=== PATIENT | female | born 1980 | race Caucasian/White ===

== ENCOUNTER 2022-05-21 08:31 | Inpatient (IN) ==
[2022-05-21] MEDS ORDERED: IOPAMIDOL 100 ML BOTTLE IV ONE (08:32)
[2022-05-21] MEDS ORDERED: methylPREDNISolone SOD SUCC 125 MG/2 ML VIAL IV ONE (08:48)
[2022-05-21] MEDS ORDERED: IPRATROPIUM/ALBUTEROL 3 ML AMPUL.NEB NEB ONE (08:48)
--- NOTE | 2022-05-21 08:50 | Emergency Department Note ---
SOB HPI General Chief Complaint: Shortness of Breath/Dyspnea Stated Complaint: SOB Time Seen by Provider: 05/21/22 08:48 Source: patient Mode of arrival: ambulatory Limitations: no limitations History of Present Illness HPI Narrative: Narrative: Patient presents ED after being sent over from a minor care for complaints of worsening shortness of breath x1 week. Spoke to the minor care provider who states that patient was satting less than 75% on room air at their facility and they felt that patient needed higher level care so they sent her over to the ED. Patient states that 1 week ago she had a pain in her back almost a popping feeling and since then she has been having progressive shortness of breath. She states that he is hard to get a deep breath in and she is not being refreshed by her breath. She tried to go to work today but could not. She reports that she has had an ongoing cough due to a tickle in the back of her throat. She denies fever, chills, sputum production, wheezing, cardiac chest pain, heart palpitation, hemoptysis, melena, hematochezia, known sick contacts, chest trauma, abdominal pain, melena or hematochezia. Patient states that she is a current everyday smoker. She denies any other alleviating or aggravating factors. Related Data Home Medications Medication Instructions Recorded Confirmed quetiapine 200 mg tablet 200 mg PO HS 07/19/15 05/21/22 alprazolam 1 mg tablet 1 mg PO DAILY PRN Anxiety 12/31/16 05/21/22 lisinopril 10 mg tablet 10 mg PO DAILY 12/31/16 05/21/22 hydrocodone 5 mg-acetaminophen 325 1 tab PO QHS PRN 03/17/19 05/21/22 mg tablet doxazosin 2 mg tablet 2 mg PO QDAY 05/21/22 05/21/22 furosemide 40 mg tablet 40 mg PO QDAY 05/21/22 05/21/22 potassium chloride 20 mEq 20 meq PO QDAY 05/21/22 05/21/22 tablet,extended release(part/cryst) Previous Rx's Medication Instructions Recorded albuterol sulfate 90 mcg/actuation 2 puff inhalation .q4-6h PRN 11/02/21 aerosol inhaler (ProAir HFA) cough, shortness of breath, wheezing #8.5 grams Allergies Allergy/AdvReac Type Severity Reaction Status Date / Time sumatriptan [From Imitrex] AdvReac Intermediate Hives Verified 05/21/22 08:15 Review of Systems ROS ROS Narrative: Narrative: All systems ED: reviewed and negative except as stated. PFSH Narrative Patient History Narrative: Narrative: Medical/Surgical/Family History All Active Problems (Updated 05/21/22 @ 11:17 by Rickey La) Acute respiratory failure with hypoxia (Acute) CHF (congestive heart failure) (Acute) Hypercapnia (Acute) Pneumonia (Acute) Pleural effusion (Acute) Bronchitis (Acute) SOB (shortness of breath) (Acute) Mastitis chronic (Acute) Nausea (Acute) Medical History Mastitis chronic Social History Smoking Status: Current every day smoker Exam Narrative Narrative: Narrative: General Limitations: no limitations General appearance: Present obese Respiratory Respiratory: Present respiratory distress, wheezes, accessory muscle use and decreased breath sounds Cardiovascular Cardiovascular: Present normal rhythm and tachycardia Adbominal Abdominal: Present soft; Absent tenderness Extremities Extremities: Present normal inspection and normal capillary refill Neurological Neurological: Present oriented X3 and normal gait Psychiatric Psychiatric: Present normal affect and normal mood Skin Skin: Present warm (WNL) and intact Course Course Course Narrative: Patient was evaluated for complaints of shortness of breath. When patient arrived she was satting 58% on room air. She was placed on 2 L via nasal cannula and her oxygen saturation, above 90%. She was tachycardic when she arrived and EKG showed sinus rhythm. Chest x-ray obtained with image reviewed myself which showed a right pleural effusion concerning for pneumonia. Blood cultures were obtained and patient was given IV Rocephin and azithromycin. She was also given some IV Lasix for her pleural effusion. Patient lactic acid was within normal limits but her CO2 level was greater than 70. Patient placed on BiPAP. Labs showing normal white cell count. Patient does not meet sepsis criteria. D-dimer was elevated so CTA of the chest was obtained and was negative for PE. Patient's BNP level was greater than 2800. Since patient has no history of CHF diagnosis this may be new onset CHF. Case discussed with hospitalist who has agreed to admit pt. Reevaluation(s) Reevaluation #1: Patient remains hemodynamically stable. No new complaints at this time. Time: 09:50 Vital Signs Vital signs: Vital Signs Pulse Rate 95 H 05/21/22 08:39 Respiratory Rate 30 H 05/21/22 08:39 Blood Pressure 149/92 05/21/22 08:39 Pulse Oximetry (%) 54 L 05/21/22 08:39 Oxygen Delivery Method 05/21/22 08:39 Pulse Rate 91 H 05/21/22 12:08 Respiratory Rate 22 05/21/22 11:09 Blood Pressure 163/120 05/21/22 12:02 Pulse Oximetry (%) 91 05/21/22 12:08 Oxygen Delivery Method 05/21/22 11:05 Oxygen Flow Rate (L/min) 30 05/21/22 09:48 MDM MDM Narrative Medical decision making narrative: Narrative: Differential Diagnosis Differential Diagnosis: PE, pneumothorax, asthma exacerbation, COPD exacerbation Medical Records Medical records reviewed: Yes I reviewed the patient's medical records. Lab Data Lab results reviewed: Yes I reviewed the patient's lab results. Result diagrams: 05/21/22 08:59 Labs: Lab Results 05/21/22 05/21/22 05/21/22 Range/Units 08:54 08:54 08:55 WBC (4.5-11.0) K/mcL RBC (3.59-5.38) M/mcL Hgb (11.2-15.7) g/dL Hct (34.1-44.9) % POC Hct 51.0 H (36-48) MCV (80.0-100.0) fL MCH (26.0-34.0) pg MCHC (31.0-36.0) g/dL RDW (11.5-14.5) % Plt Count (140-440) K/mcL MPV (8.8-12.5) fL Immature Gran % (Auto) (0.0-0.5) % Neut % (Auto) (38.0-78.0) % Lymph % (Auto) (15.5-49.0) % [place] % (Auto) (1.0-12.0) % Eos % (Auto) (0.0-7.0) % Baso % (Auto) (0.0-2.0) % Lymph # (Auto) (1.50-4.80) K/mcL [place] # (Auto) (0.10-0.90) K/mcL Eos # (Auto) (0.00-0.70) K/mcL Baso # (Auto) (0.00-0.30) K/mcL Immature Gran # (0.00-0.05) K/mcl Absolute Neutrophils (1.80-8.00) K/mcL D-Dimer (0.27-0.50) ug/mL POC VBG pH 7.34 (7.32-7.42) POC VBG pCO2 at Temp 70.8 H* (41-51) POC VBG pO2 47 H (25-40) POC VBG HCO3 38.0 H (24-28) POC VBG Total CO2 40.0 H (25-29) POC Venous O2 Sat 78.0 H (40-70) POC VBG Base Excess 12.0 H* (-2-2) VBG Lactic Acid 0.8 (0.5-2) POC Sodium 138 (133-145) POC Potassium 4.1 (3.3-5.1) POC Chloride 95 L (96-108) POC Total CO2 34.0 H (22-30) POC BUN 6 (6-20) POC Creatinine 0.5 L (0.6-1.2) POC Glucose 103 (70-105) POC WB Ioniz Calcium 1.17 (1.16-1.32) NT-Pro-B Natriuret Pep 2806.0 H (<125.0) pg/mL HCG, Qual Negative POC Troponin I (0.00-0.08) 05/21/22 05/21/22 05/21/22 Range/Units 08:59 08:59 09:00 WBC 9.3 (4.5-11.0) K/mcL RBC 5.79 H (3.59-5.38) M/mcL Hgb 14.9 (11.2-15.7) g/dL Hct 49.8 H (34.1-44.9) % POC Hct (36-48) MCV 86.0 (80.0-100.0) fL MCH 25.7 L (26.0-34.0) pg MCHC 29.9 L (31.0-36.0) g/dL RDW 18.4 H (11.5-14.5) % Plt Count 264 (140-440) K/mcL MPV 9.6 (8.8-12.5) fL Immature Gran % (Auto) 0.3 (0.0-0.5) % Neut % (Auto) 71.0 (38.0-78.0) % Lymph % (Auto) 13.4 L (15.5-49.0) % [place] % (Auto) 5.5 (1.0-12.0) % Eos % (Auto) 9.4 H (0.0-7.0) % Baso % (Auto) 0.4 (0.0-2.0) % Lymph # (Auto) 1.25 L (1.50-4.80) K/mcL [place] # (Auto) 0.51 (0.10-0.90) K/mcL Eos # (Auto) 0.88 H (0.00-0.70) K/mcL Baso # (Auto) 0.04 (0.00-0.30) K/mcL Immature Gran # 0.03 (0.00-0.05) K/mcl Absolute Neutrophils 6.61 (1.80-8.00) K/mcL D-Dimer 6.57 H (0.27-0.50) ug/mL POC VBG pH (7.32-7.42) POC VBG pCO2 at Temp (41-51) POC VBG pO2 (25-40) POC VBG HCO3 (24-28) POC VBG Total CO2 (25-29) POC Venous O2 Sat (40-70) POC VBG Base Excess (-2-2) VBG Lactic Acid (0.5-2) POC Sodium (133-145) POC Potassium (3.3-5.1) POC Chloride (96-108) POC Total CO2 (22-30) POC BUN (6-20) POC Creatinine (0.6-1.2) POC Glucose (70-105) POC WB Ioniz Calcium (1.16-1.32) NT-Pro-B Natriuret Pep (<125.0) pg/mL HCG, Qual POC Troponin I < 0.02 (0.00-0.08) ED POC Tests ED POC Tests: RAKAN - Influenza A Negative RAKAN - Influenza B Negative RAKAN - SARS Antigen Negative HCG POC Results Negative Radiology Data Radiology results reviewed: Yes I reviewed the patient's radiology results. Radiology results narrative: Chest x-ray obtained with image reviewed myself, I agree with radiologist interpretation CT of the chest obtained with image reviewed myself, I agree with radiologist interpretation EKG Data EKG #1: EKG attestation: Yes I reviewed and interpreted this EKG. EKG shows normal: sinus rhythm Rate: tachycardia (92) Rhythm: NSR [place]/QRS: LAHB/LAFB Heart block present: None ST segment elevation in: None ST segment depression in: None Interpretation: no acute changes Core Measures AMI Core Measures Followed: Yes Discharge Plan Patient/Caregiver Discharge Instructions Pt seen by [facility] SORTER/PA only: No Clinical Impression: Acute respiratory failure with hypoxia, CHF (congestive heart failure), Hypercapnia, Pneumonia, Pleural effusion Patient Disposition: Xfer As Outpt/Obs ([facility]) Condition: Fair Follow up with: No,PCP [Primary Care Provider] - Prescriptions: No Action albuterol sulfate [ProAir HFA] 90 mcg/actuation HFA aerosol inhaler 2 puff inhalation .q4-6h PRN (Reason: cough, shortness of breath, wheezing) Qty: 8.5 0RF Rx Instructions: administer with spacer hydrocodone-acetaminophen 5-325 mg tablet 1 tab PO QHS PRN furosemide 40 mg tablet 40 mg PO QDAY potassium chloride 20 mEq tablet,ER particles/crystals 20 meq PO QDAY doxazosin 2 mg tablet 2 mg PO QDAY quetiapine 200 MG tablet 200 mg PO HS alprazolam 1 MG tablet 1 mg PO DAILY PRN (Reason: Anxiety) lisinopril 10 MG tablet 10 mg PO DAILY
[2022-05-21 08:57] LABS: POC Calcium, Ionized 1.17 (1.16-1.32); POC Creatinine 0.5 (0.6-1.2); POC Potassium 4.1 (3.3-5.1)
--- NOTE | 2022-05-21 09:42 | XRay Report ---
INDICATION: sob TECHNIQUE: AP portable upright chest x-ray COMPARISON: Previous chest x-ray dated 11/02/2021 FINDINGS: Heart size is unchanged and probably within normal limits for AP positioning. Pulmonary vascularity is prominent. There is peribronchial thickening which may be bronchitis in this patient with a smoking history. Interstitial edema is possible. There is right basilar consolidation and a moderate right pleural effusion. Pulmonary edema or pneumonia are possible. Clinical correlation and follow-up radiographs are recommended. IMPRESSION: 1. Right basilar consolidation and right pleural effusion. Findings may be due to congestive heart failure and/or pneumonia 2. Peribronchial thickening may be due to bronchitis or interstitial edema. Interpreted and Authenticated by: Vinnie Hanley 05/21/22
[2022-05-21] MEDS ORDERED: AZITHROMYCIN 500 MG in DEXTROSE 5% IN WATER 250 ML IV ONE (09:45)
[2022-05-21] MEDS ORDERED: cefTRIAXone 2 GM in DEXTROSE 5% IN WATER 50 ML IV ONE (09:45)
[2022-05-21] MEDS ORDERED: FUROSEMIDE 100 MG/10 ML VIAL IV ONE (09:46)
[2022-05-21 10:30] LABS: Basophils # (Auto) 0.04 K/mcL (0.00-0.30); Basophils % (Auto) 0.4 % (0.0-2.0); Eosinophils # (Auto) 0.88 K/mcL (0.00-0.70); Eosinophils % (Auto) 9.4 % (0.0-7.0); Hematocrit 49.8 % (34.1-44.9); Hemoglobin 14.9 g/dL (11.2-15.7); Lymphocytes # (Auto) 1.25 K/mcL (1.50-4.80); Lymphocytes % (Auto) 13.4 % (15.5-49.0); Mean Corpuscular HGB Conc 29.9 g/dL (31.0-36.0); Mean Platelet Volume 9.6 fL (8.8-12.5); Monocytes # (Auto) 0.51 K/mcL (0.10-0.90); Monocytes % (Auto) 5.5 % (1.0-12.0); Platelet Count 264 K/mcL (140-440); RBC 5.79 M/mcL (3.59-5.38); Red Cell Distribution Width 18.4 % (11.5-14.5); WBC 9.3 K/mcL (4.5-11.0)
[2022-05-21 10:51] LABS: HCG,Serum Negative
--- NOTE | 2022-05-21 11:02 | Cat Scan Report ---
INDICATION: sob, elevatd ddimer COMPARISON: Chest x-rays dated 05/21/2022, 11/02/2021 TECHNIQUE: Axial images obtained through the chest. 90ml Isovue 370 injected intravenously, and scanning was performed during pulmonary arterial phase. Sagittally and coronally reformatted images were obtained. MIP reformatted images. FINDINGS: Lungs:Partial right upper lobe and right lower lobe collapse with air bronchograms. Findings are consistent with compressive atelectasis in the right lower lobe. Left lung is negative Mediastinum, vascular:Main pulmonary artery, right pulmonary artery, left pulmonary artery are negative. No intraluminal filling defects. No lobar, segmental, or subsegmental emboli. Main pulmonary artery measures 36 mm in cross-sectional diameter. This may indicate pulmonary arterial hypertension. Thoracic aorta is negative. No aneurysmal dilatation No pathologic mediastinal or hilar adenopathy Heart:No cardiomegaly. No pericardial effusion. Pleura:Moderate to large right pleural effusion. No pleural-based mass. Axilla, supraclavicular regions, chest wall:No pathologic axillary or supraclavicular adenopathy. Musculoskeletal:Negative thoracic spine. No compression fracture. No lytic lesion. No rib or sternal lesions Upper Abdomen:Spleen is enlarged. Spleen measures 16.5 cm in maximum AP dimension. Craniocaudal dimension is not assessed. IMPRESSION: 1. Negative pulmonary CTA. No pulmonary embolism 2. Right upper lobe and right lower lobe atelectasis 3. Moderate to large right pleural effusion 4. Enlarged main pulmonary artery. Pulmonary arterial hypertension is possible 5. Splenomegaly The exam was performed using radiation dose optimization techniques including, but not limited to, automated exposure control, adjustment of the mA and/or kV according to patient size and use of iterative reconstruction technique. Interpreted and Authenticated by: Vinnie Hanley 05/21/22
--- NOTE | 2022-05-21 12:53 | Internal Med History&Physical ---
HPI History of Present Illness Patient information: Note initiated : 05/21/22 at 12:51 pm Service Date, if different from initiated Date: [] Patient: Gauri Winchester a 42 y/o F admitted on for Shortness of breath. Chief Complaint: [shortness of breath] Chief complaint: shortness of breath History of present illness: Ms. Winchester is a 42 year old F history of CHF, sleep apnea on CPAP at night, presenting with 1 week history of acute nausea, gradually worsening shortness of breath. Patient was being diagnosed with CHF about 5 years ago. About a week ago, she have acute onset shortness of breath unable to take a deep breath because of some right-sided flank pain. She is also complaining of intermittent cough but she denies any wheezing but her family stated that she does have wheezing. She denies any chest pain or palpitations. She denies any fever chills or diaphoresis. She has a history of exertional dyspnea of 20 feet. She has orthopnea sleeping on 2 pillows. She is complaining of bilateral leg swellings. She denies any unintentional weight gain. She was placed on BiPAP in the ED. Labs significant for lack of leukocytosis with WBC 9.3. Lactic acid 0.8. D-dimer 6.57. BNP 2806. CTA of the chest negative for pulmonary embolism. It shows right upper lobe and right lower lobe atelectasis. It shows moderate to large right pleural effusions. It also suggesting the presence of pulmonary arterial hypertension's. Constitutional Constitutional: Absent chills, excessive sweating, fatigue, fever(s) or weakness EENT Eyes: Absent blurry vision, change in vision, loss of vision or other visual disturbances Ears: Absent decreased hearing or tinnitus Nose, mouth and throat: Absent abnormal hearing, dry mouth, headache(s), nasal congestion or sore throat Cardiovascular Cardiovascular: Absent chest pain, chest pain at rest, edema, irregular heart rhythm or palpatations Respiratory Respiratory: Present cough, dyspnea and dyspnea on exertion; Absent wheezing Gastrointestinal Gastrointestinal: Absent abdominal pain, constipation, diarrhea, nausea or vomiting Musculoskeletal Musculoskeletal: Absent back pain, deformity, limited range of motion, muscle cramps, muscle weakness or numbness Integumentary Integumentary: Absent lesions, rash or wounds Neurological Neurological: Absent focal weakness, headache(s) or numbness Psychiatric Psychiatric: Absent anxiety, depression or hallucinations PFSH PFSH All Active Problems (Updated 05/21/22 @ 12:59 by Adair Butler MD) Pulmonary arterial hypertension (Acute) Morbid obesity with BMI of 50.0-59.9, adult (Acute) THADDEUS on CPAP (Acute) CHF exacerbation (Acute) Acute on chronic respiratory failure with hypoxia and hypercapnia (Acute) Acute respiratory failure with hypoxia (Acute) CHF (congestive heart failure) (Acute) Hypercapnia (Acute) Pneumonia (Acute) Pleural effusion (Acute) Bronchitis (Acute) SOB (shortness of breath) (Acute) Mastitis chronic (Acute) Nausea (Acute) Medical History Mastitis chronic Social History smoking status: Current every day smoker MEDS/ALLERGIES Home Medications and Allergies Home Medications Medication Instructions Recorded Confirmed Type quetiapine 200 mg tablet 200 mg PO HS 07/19/15 05/21/22 History alprazolam 1 mg tablet 1 mg PO DAILY PRN Anxiety 12/31/16 05/21/22 History lisinopril 10 mg tablet 10 mg PO DAILY 12/31/16 05/21/22 History hydrocodone 5 mg-acetaminophen 325 1 tab PO QHS PRN 03/17/19 05/21/22 History mg tablet albuterol sulfate 90 mcg/actuation 2 puff inhalation .q4-6h PRN 11/02/21 05/21/22 Rx aerosol inhaler (ProAir HFA) cough, shortness of breath, wheezing #8.5 grams doxazosin 2 mg tablet 2 mg PO QDAY 05/21/22 05/21/22 History furosemide 40 mg tablet 40 mg PO QDAY 05/21/22 05/21/22 History potassium chloride 20 mEq 20 meq PO QDAY 05/21/22 05/21/22 History tablet,extended release(part/cryst) Allergies Allergy/AdvReac Type Severity Reaction Status Date / Time sumatriptan [From Imitrex] AdvReac Intermediate Hives Verified 05/21/22 08:15 EXAM Constitutional Vitals: Pulse Resp BP Pulse Ox O2 Del Method O2 Flow Rate 91 H 22 163/120 91 30 05/21/22 12:08 05/21/22 11:09 05/21/22 12:02 05/21/22 12:08 05/21/22 11:05 05/21/22 09:48 General appearance: cooperative, mild distress, morbidly obese and no acute distress Head Head exam: Present atraumatic and normocephalic Eye Eye exam: Present EOMI and PERRL ENT ENT exam: Present mucous membranes moist, normal exam and normal external ear exam Additional comments: BiPAP in place Neck Neck exam: Present normal inspection; Absent lymphadenopathy, tenderness or thyromegaly Respiratory Respiratory exam: Present decreased breath sounds; Absent accessory muscle use, respiratory distress or wheezes Cardiovascular Cardiovascular exam: Present normal rate and rhythm; Absent JVD GI/Abdominal GI/Abdominal exam: Present normal bowel sounds and soft; Absent organomegaly or tenderness Extremities Exam Extremities exam: Present full ROM, normal capillary refill, normal inspection and pedal edema; Absent tenderness Neurological Exam Neurological exam: Present alert, CN II-XII intact and oriented X3; Absent motor sensory deficit Psychiatric Psychiatric exam: Present normal affect and normal mood; Absent anxious or depressed Skin Skin exam: Present dry and intact DATA Data Completed and Pending Labs: Labs from last 24 hours 05/21/22 05/21/22 05/21/22 09:00 08:59 08:59 WBC 9.3 RBC 5.79 H Hgb 14.9 Hct 49.8 H POC Hct MCV 86.0 MCH 25.7 L MCHC 29.9 L RDW 18.4 H Plt Count 264 MPV 9.6 Immature Gran % (Auto) 0.3 Neut % (Auto) 71.0 Lymph % (Auto) 13.4 L [place] % (Auto) 5.5 Eos % (Auto) 9.4 H Baso % (Auto) 0.4 Lymph # (Auto) 1.25 L [place] # (Auto) 0.51 Eos # (Auto) 0.88 H Baso # (Auto) 0.04 Immature Gran # 0.03 Absolute Neutrophils 6.61 D-Dimer 6.57 H POC VBG pH POC VBG pCO2 at Temp POC VBG pO2 POC VBG HCO3 POC VBG Total CO2 POC Venous O2 Sat POC VBG Base Excess VBG Lactic Acid POC Sodium POC Potassium POC Chloride POC Total CO2 POC BUN POC Creatinine POC Glucose POC WB Ioniz Calcium NT-Pro-B Natriuret Pep HCG, Qual POC Troponin I < 0.02 05/21/22 05/21/22 05/21/22 08:55 08:54 08:54 WBC RBC Hgb Hct POC Hct 51.0 H MCV MCH MCHC RDW Plt Count MPV Immature Gran % (Auto) Neut % (Auto) Lymph % (Auto) [place] % (Auto) Eos % (Auto) Baso % (Auto) Lymph # (Auto) [place] # (Auto) Eos # (Auto) Baso # (Auto) Immature Gran # Absolute Neutrophils D-Dimer POC VBG pH 7.34 POC VBG pCO2 at Temp 70.8 H* POC VBG pO2 47 H POC VBG HCO3 38.0 H POC VBG Total CO2 40.0 H POC Venous O2 Sat 78.0 H POC VBG Base Excess 12.0 H* VBG Lactic Acid 0.8 POC Sodium 138 POC Potassium 4.1 POC Chloride 95 L POC Total CO2 34.0 H POC BUN 6 POC Creatinine 0.5 L POC Glucose 103 POC WB Ioniz Calcium 1.17 NT-Pro-B Natriuret Pep 2806.0 H HCG, Qual Negative POC Troponin I A/P Assessment and plan (1) Acute on chronic respiratory failure with hypoxia and hypercapnia: Status: Acute (2) CHF exacerbation: Status: Acute (3) THADDEUS on CPAP: Status: Acute (4) Morbid obesity with BMI of 50.0-59.9, adult: Status: Acute (5) Pulmonary arterial hypertension: Status: Acute (6) Pleural effusion: Status: Acute Narrative A/P Narrative: Assessment and Plans: 1. Acute on chronic respiratory failure with hypercapnia and hypoxia secondary to CHF exacerbation with associated right sided pleural effusion: Inpatient PCU BiPAP with the following settings: IPAP/EPAP 17/8, RR 8, FiO2 35% Strict intake and output Daily weigh 2L/day fluid restriction Lasix IV Lisinopril No beta nora while in exacerbation 2D echocardiogram Physical therapy 2. THADDEUS on CPAP: BiPAP for now, see above Once out of CHF exacerbation, will switch back to CPAP while sleeping 3. Morbid obesity: Hospice Chaplain patient on life style modifications in order to lose weight 4. Possible pulmonary arterial hypertension: Consider Ciagra if no clinical improvement with diuretics GI ppx: not currently indicated DVT ppx: Lovenox Code status: Full Prognosis: extremely guarded Disposition: inpatient PCU; PT Time Spent With Patient Time: Total time spent is greater than 50% in coordination of care (as documented) at patient's floor/unit and/or counseling patient: Total time spent with greater than 50% in coordination of care (as documented) at patient's floor/unit and/or counseling patient:: 50 - 70 minutes
[2022-05-21] MEDS ORDERED: LACTULOSE 20 GM/30 ML ORAL.SOL PO PRN (13:45)
[2022-05-21] MEDS ORDERED: ONDANSETRON 4 MG/2 ML VIAL IV PRN (13:45)
[2022-05-21] MEDS ORDERED: IPRATROPIUM/ALBUTEROL 3 ML AMPUL.NEB NEB PRN (13:45)
[2022-05-21] MEDS ORDERED: SENNOSIDES 1 TABLET PO PRN (13:45)
[2022-05-21] MEDS ORDERED: ACETAMINOPHEN 325 MG TABLET PO PRN (13:45)
[2022-05-21] MEDS: 0.9 % SODIUM CHLORIDE 10 ML SYRINGE IV SCH ×2 (13:47→21:00)
--- NOTE | 2022-05-21 14:10 | EKG ---
[facility] Test Date: 2022-05-21 Pat Name: Gauri Winchester Department: ED Room: Gender: Female [employer] Apprentice: AW : 1980 Requested By: Sunny Harrison Order Number: [id number] Reading MD: Adria Mcknight Measurements Intervals [place] Rate: 92 P: 27 AK: 160 QRS: -41 QRSD: 98 T: 31 QT: 373 QTc: 462 Interpretive Statements Sinus rhythm Left anterior fascicular block Abnormal R-wave progression, late transition Baseline wander in lead(s) V2,V3,V6 Electronically Signed On 05-21-2022 14:10:13 PDT by Adria Mcknight /store/M0/[id number]/[id number]
[2022-05-21] MEDS ORDERED: ALBUTEROL SULFATE 200 PUFF INHALER INH PRN (15:32)
[2022-05-21] MEDS: FUROSEMIDE 40 MG/4 ML VIAL IV SCH (15:56)
[2022-05-21] MEDS: HYDROcodone/APAP 5/325MG TABLET PO PRN (18:51)
[2022-05-21] MEDS: ALPRAZolam 0.5 MG TABLET PO PRN (18:51)
[2022-05-21] MEDS ORDERED: hydrALAZINE 20 MG/ML VIAL IV PRN (19:15)
[2022-05-21] MEDS: QUEtiapine 100 MG TABLET PO SCH (20:59)
[2022-05-21] MEDS: DOCUSATE SODIUM 100 MG CAPSULE PO SCH (21:00)
[2022-05-22] MEDS: 0.9 % SODIUM CHLORIDE 10 ML SYRINGE IV SCH ×3 (05:13→22:38)
[2022-05-22 06:14] LABS: Basophils # (Auto) 0.02 K/mcL (0.00-0.30); Basophils % (Auto) 0.2 % (0.0-2.0); Eosinophils # (Auto) 0.02 K/mcL (0.00-0.70); Eosinophils % (Auto) 0.2 % (0.0-7.0); Hemoglobin 15.1 g/dL (11.2-15.7); Lymphocytes # (Auto) 0.99 K/mcL (1.50-4.80); Lymphocytes % (Auto) 10.3 % (15.5-49.0); Mean Cell Volume 88.5 fL (80.0-100.0); Mean Corpuscular HGB Conc 29.6 g/dL (31.0-36.0); Mean Platelet Volume 9.5 fL (8.8-12.5); Monocytes # (Auto) 0.74 K/mcL (0.10-0.90); Monocytes % (Auto) 7.7 % (1.0-12.0); Neutrophils % (Auto) 80.8 % (38.0-78.0); Platelet Count 259 K/mcL (140-440); RBC 5.76 M/mcL (3.59-5.38); Red Cell Distribution Width 18.3 % (11.5-14.5); WBC 9.6 K/mcL (4.5-11.0)
[2022-05-22 07:13] LABS: Phosphorous 5.1 mg/dL (2.5-4.5)
[2022-05-22 07:24] LABS: ALT/SGPT 14 U/L (<40); AST/SGOT 20 U/L (<32); Albumin 3.7 gm/dL (3.2-5.2); Albumin/Globulin Ratio 1.2 (1.0-2.3); Alkaline Phosphatase 87 U/L (39-117); Bilirubin,Total 0.3 mg/dL (0.1-1.0); Blood Urea Nitrogen 11 mg/dL (6-20); Calcium 9.2 mg/dL (8.6-10.4); Carbon Dioxide 35 mmol/L (22-30); Chloride 95 mmol/L (96-108); Globulin 3.3 gm/dL (2.2-3.7); Glomerular Filtration Rate 112; Glucose 84 mg/dL (70-105)
[2022-05-22] MEDS: FUROSEMIDE 40 MG/4 ML VIAL IV SCH (08:13)
[2022-05-22] MEDS: ENOXAPARIN 40 MG/0.4 ML SYRINGE SQ SCH (08:14)
[2022-05-22] MEDS: POTASSIUM CHLORIDE 20 MEQ TABLET PO SCH (08:14)
[2022-05-22] MEDS: DOCUSATE SODIUM 100 MG CAPSULE PO SCH ×2 (08:30→21:09)
[2022-05-22] MEDS ORDERED: LISINOPRIL 2.5 MG TABLET PO SCH (09:00)
[2022-05-22] MEDS ORDERED: DOXAZOSIN 1 MG TABLET PO SCH (09:00)
[2022-05-22] MEDS: LISINOPRIL 20 MG TABLET PO SCH (09:08)
--- NOTE | 2022-05-22 09:10 | Internal Med Progress Note ---
SUBJECTIVE Subjective Patient information: Note initiated : 05/22/22 at 9:04 am Service Date, if different from initiated Date: [] Patient: Gauri Winchester a 42 y/o F admitted on 05/21/22 for Shortness of breath. Chief Complaint: [] Interval history: Ms. Winchester is a 42 year old F history of CHF, sleep apnea on CPAP at night, presenting with 1 week history of acute nausea, gradually worsening shortness of breath. Patient was being diagnosed with CHF about 5 years ago. About a week ago, she have acute onset shortness of breath unable to take a deep breath because of some right-sided flank pain. She is also complaining of intermittent cough but she denies any wheezing but her family stated that she does have wheezing. She denies any chest pain or palpitations. She denies any fever chills or diaphoresis. She has a history of exertional dyspnea of 20 feet. She has orthopnea sleeping on 2 pillows. She is complaining of bilateral leg swellings. She denies any unintentional weight gain. She was placed on BiPAP in the ED. Labs significant for lack of leukocytosis with WBC 9.3. Lactic acid 0.8. D-dimer 6.57. BNP 2806. CTA of the chest negative for pulmonary embolism. It shows right upper lobe and right lower lobe atelectasis. It shows moderate to large right pleural effusions. It also suggesting the presence of pulmonary arterial hypertension. 05/22: Was on BiPAP overnight, currently at 5L/min oxygen via nasal cannula. c/o improving degree of shortness of breath. Denies cough or respiratory wheezing. Denies fever, chills, or sweating. Denies chest pain or palpitation. Improving degree of general body weakness. d/c Doxazosin. Continue Lasix IV and Lisinopril. Continue to wean down/off BiPAP as tolerated. Pending echocardiogram. Pending physical therapy. Constitutional Vitals: Vital Signs Temp Pulse Resp BP Pulse Ox O2 Del Method O2 Flow Rate 36.6 C 89 19 111/70 97 6 05/22/22 08:00 05/22/22 08:00 05/22/22 08:00 05/22/22 08:00 05/22/22 08:00 05/22/22 08:00 05/21/22 18:05 Period Temp Pulse Resp BP Sys/Winter Pulse Ox O2 Del Method O2 Flow Rate Last 24 Hr 36.4 C-37.0 C 82-108 15-28 97-184/55-120 74-100 BiPAP-Nasal Cannula 6-30 Intake and Output 05/21/22 05/22/22 05/22/22 21:59 05:59 13:59 Intake Total 240 120 Output Total 1300 900 Balance -1060 -780 Weight 139.071 kg Intake & Output: Intake & Output 05/21/22 05/22/22 05/22/22 21:59 05:59 13:59 Intake Total 240 120 Output Total 1300 900 Balance -1060 -780 Weight 139.071 kg Intake: Oral 240 120 Output: Void Amount 1300 900 Other: Meal Dinner Percent of Meal Consumed 100% Feeding Ability Independent Urine Appearance Clear Clear Urine Color Bright Yellow Bright Yellow Urine Odor Normal General appearance: cooperative, morbidly obese and no acute distress Head Head exam: Present atraumatic and normal inspection Eye Eye exam: Present normal appearance ENT ENT exam: Present mucous membranes moist, normal exam and normal external ear exam Additional comments: Nasal cannula in place Neck Neck exam: Present normal inspection Respiratory Respiratory exam: Present decreased breath sounds Cardiovascular Cardiovascular exam: Present normal rate and rhythm GI/Abdominal GI/Abdominal exam: Present normal bowel sounds Extremities Exam Extremities exam: Present pedal edema Back Exam Back exam: Present normal inspection Neurological Exam Neurological exam: Present alert and oriented X3 Skin Skin exam: Present intact and warm OBJ DATA Labs CBC & Chem 7: 05/22/22 05:04 05/22/22 05:04 Labs: Abnormal Lab Results 05/22/22 05/22/22 05/21/22 05:04 05:04 08:59 RBC 5.76 H Hct 51.0 H POC Hct MCH MCHC 29.6 L RDW 18.3 H Immature Gran % (Auto) 0.8 H Neut % (Auto) 80.8 H Lymph % (Auto) 10.3 L Eos % (Auto) Lymph # (Auto) 0.99 L Eos # (Auto) Immature Gran # 0.08 H D-Dimer 6.57 H POC VBG pCO2 at Temp POC VBG pO2 POC VBG HCO3 POC VBG Total CO2 POC Venous O2 Sat POC VBG Base Excess POC Chloride Chloride 95 L Carbon Dioxide 35 H POC Total CO2 Anion Gap 7.0 L POC Creatinine Phosphorus 5.1 H NT-Pro-B Natriuret Pep 05/21/22 05/21/22 05/21/22 08:59 08:55 08:54 RBC 5.79 H Hct 49.8 H POC Hct MCH 25.7 L MCHC 29.9 L RDW 18.4 H Immature Gran % (Auto) Neut % (Auto) Lymph % (Auto) 13.4 L Eos % (Auto) 9.4 H Lymph # (Auto) 1.25 L Eos # (Auto) 0.88 H Immature Gran # D-Dimer POC VBG pCO2 at Temp 70.8 H* POC VBG pO2 47 H POC VBG HCO3 38.0 H POC VBG Total CO2 40.0 H POC Venous O2 Sat 78.0 H POC VBG Base Excess 12.0 H* POC Chloride Chloride Carbon Dioxide POC Total CO2 Anion Gap POC Creatinine Phosphorus NT-Pro-B Natriuret Pep 2806.0 H 05/21/22 08:54 RBC Hct POC Hct 51.0 H MCH MCHC RDW Immature Gran % (Auto) Neut % (Auto) Lymph % (Auto) Eos % (Auto) Lymph # (Auto) Eos # (Auto) Immature Gran # D-Dimer POC VBG pCO2 at Temp POC VBG pO2 POC VBG HCO3 POC VBG Total CO2 POC Venous O2 Sat POC VBG Base Excess POC Chloride 95 L Chloride Carbon Dioxide POC Total CO2 34.0 H Anion Gap POC Creatinine 0.5 L Phosphorus NT-Pro-B Natriuret Pep Meds: Medications Acetaminophen (Acetaminophen 325 Mg Tablet) 650 mg PO Q6HP PRN; Protocol PRN Reason: Per Pain Protocol/Fever > 101 Hydrocodone Bitart/Acetaminophen (Hydrocodone/Apap 5/325mg Tablet) 1 tab PO BIDP PRN; Protocol PRN Reason: Pain Last Admin: 05/21/22 18:51 Dose: 1 tab Albuterol Sulfate (Albuterol Sulfate 200 Puff Inhaler) 2 puff INH Q4-6HP PRN PRN Reason: cough, shortness of breath, wheezing Albuterol/Ipratropium (Ipratropium/Albuterol 3 Ml Ampul.Neb) 3 ml NEB Q4HRT PRN PRN Reason: Wheezing Alprazolam (Alprazolam 0.5 Mg Tablet) 1 mg PO DAILYP PRN PRN Reason: Anxiety Last Admin: 05/21/22 18:51 Dose: 1 mg Docusate Sodium (Docusate Sodium 100 Mg Capsule) 100 mg PO BID [facility] Last Admin: 05/21/22 21:00 Dose: Not Given Enoxaparin Sodium (Enoxaparin 40 Mg/0.4 Ml Syringe) 40 mg SQ DAILY [facility] Last Admin: 05/22/22 08:14 Dose: 40 mg Furosemide (Furosemide 40 Mg/4 Ml Vial) 40 mg IV BIDD [facility] Last Admin: 05/22/22 08:13 Dose: 40 mg Hydralazine HCl (Hydralazine 20 Mg/Ml Vial) 10 mg IV Q4-6HP PRN PRN Reason: Hypertension Lactulose (Lactulose 20 Gm/30 Ml Oral.Kika) 10 gm PO DAILYP PRN PRN Reason: Constipation Lisinopril (Lisinopril 20 Mg Tablet) 40 mg PO QDAY [facility] Ondansetron HCl (Ondansetron 4 Mg/2 Ml Vial) 4 mg IV Q4HP PRN; Protocol PRN Reason: Nausea And Vomiting Potassium Chloride (Potassium Chloride 20 Meq Tablet) 20 meq PO QDAY [facility] Last Admin: 05/22/22 08:14 Dose: 20 meq Quetiapine Fumarate (Quetiapine 100 Mg Tablet) 150 - 300 mg PO QHS [facility] Last Admin: 05/21/22 20:59 Dose: 150 mg Senna (Sennosides 1 Tablet) 2 tab PO HSP PRN PRN Reason: Constipation Sodium Chloride (0.9 % Sodium Chloride 10 Ml Syringe) 10 ml IV Q8 [facility] Last Admin: 05/22/22 05:13 Dose: 10 ml A/P Assessment and plan (1) Acute on chronic respiratory failure with hypoxia and hypercapnia: Status: Acute (2) CHF exacerbation: Status: Acute (3) THADDEUS on CPAP: Status: Acute (4) Morbid obesity with BMI of 50.0-59.9, adult: Status: Acute (5) Pulmonary arterial hypertension: Status: Acute (6) Pleural effusion: Status: Acute Narrative A/P Narrative: Assessment and Plans: 1. Acute on chronic respiratory failure with hypercapnia and hypoxia secondary to CHF exacerbation with associated right sided pleural effusion: Inpatient PCU BiPAP with the following settings: IPAP/EPAP 17/8, RR 8, FiO2 50%, continue to wean down/off BiPAP as tolerated Strict intake and output Daily weigh 2L/day fluid restriction Lasix IV Lisinopril No beta nora while in exacerbation 2D echocardiogram Physical therapy 2. THADDEUS on CPAP: BiPAP for now, see above Once out of CHF exacerbation, will switch back to CPAP while sleeping 3. Morbid obesity: Bass Singer patient on life style modifications in order to lose weight 4. Possible pulmonary arterial hypertension: Consider Viagra if no clinical improvement with diuretics GI ppx: not currently indicated DVT ppx: Lovenox Code status: Full Prognosis: Guarded Disposition: inpatient PCU; PT Time Spent With Patient Time: Total time spent is greater than 50% in coordination of care (as documented) at patient's floor/unit and/or counseling patient: Total time spent with greater than 50% in coordination of care (as documented) at patient's floor/unit and/or counseling patient:: 35 - 50 minutes QUALITY VTE Deep Vein Thrombosis/Pulmonary Embolism Present on Admission: No
[2022-05-22] MEDS: HYDROcodone/APAP 5/325MG TABLET PO PRN ×2 (09:14→19:31)
[2022-05-22] MEDS: FUROSEMIDE 40 MG TABLET PO SCH (16:34)
[2022-05-22] MEDS: ALPRAZolam 0.5 MG TABLET PO PRN (19:31)
[2022-05-22] MEDS: QUEtiapine 100 MG TABLET PO SCH (23:06)
[2022-05-23] MEDS: 0.9 % SODIUM CHLORIDE 10 ML SYRINGE IV SCH (05:21)
[2022-05-23 06:24] LABS: Basophils # (Auto) 0.04 K/mcL (0.00-0.30); Basophils % (Auto) 0.5 % (0.0-2.0); Eosinophils # (Auto) 0.23 K/mcL (0.00-0.70); Eosinophils % (Auto) 2.8 % (0.0-7.0); Hematocrit 50.7 % (34.1-44.9); Hemoglobin 14.6 g/dL (11.2-15.7); Lymphocytes # (Auto) 1.05 K/mcL (1.50-4.80); Lymphocytes % (Auto) 12.7 % (15.5-49.0); Mean Cell Volume 89.3 fL (80.0-100.0); Mean Corpuscular HGB Conc 28.8 g/dL (31.0-36.0); Mean Platelet Volume 9.8 fL (8.8-12.5); Monocytes # (Auto) 0.54 K/mcL (0.10-0.90); Monocytes % (Auto) 6.5 % (1.0-12.0); Platelet Count 219 K/mcL (140-440); RBC 5.68 M/mcL (3.59-5.38); Red Cell Distribution Width 17.7 % (11.5-14.5); WBC 8.3 K/mcL (4.5-11.0)
[2022-05-23 06:59] LABS: Phosphorous 3.7 mg/dL (2.5-4.5)
[2022-05-23 07:05] LABS: ALT/SGPT 15 U/L (<40); AST/SGOT 16 U/L (<32); Albumin 3.7 gm/dL (3.2-5.2); Albumin/Globulin Ratio 1.2 (1.0-2.3); Alkaline Phosphatase 86 U/L (39-117); Bilirubin,Total 0.3 mg/dL (0.1-1.0); Blood Urea Nitrogen 12 mg/dL (6-20); Carbon Dioxide 42 mmol/L (22-30); Chloride 95 mmol/L (96-108); Globulin 3.2 gm/dL (2.2-3.7); Glomerular Filtration Rate 118; Glucose 93 mg/dL (70-105)
[2022-05-23] MEDS: POTASSIUM CHLORIDE 20 MEQ TABLET PO SCH (08:47)
[2022-05-23] MEDS: LISINOPRIL 20 MG TABLET PO SCH (08:47)
[2022-05-23] MEDS: ENOXAPARIN 40 MG/0.4 ML SYRINGE SQ SCH (08:47)
[2022-05-23] MEDS: DOCUSATE SODIUM 100 MG CAPSULE PO SCH (08:47)
[2022-05-23] MEDS: FUROSEMIDE 40 MG TABLET PO SCH (08:48)
--- NOTE | 2022-05-23 10:30 | Discharge Summary ---
Discharge Provider Provider IMPORTANT FOLLOW-UP INFORMATION FOR PCP: Patient information: Note initiated : 05/23/22 at 10:25 am Service Date, if different from initiated Date: [] Patient: Gauri Winchester 42 y/o F admitted on 05/21/22 for Shortness of breath. Chief Complaint: [] Date of admission: 05/21/22 13:31 Discharge date: 05/23/22 Primary care physician: PCP No Attending physician on admission: Adair Butler Consults: 05/21/22 Consult to Physician [CONS] Stat Comment: Consulting Provider: Adair Butler Reason For Exam: Physician to Consult 05/21/22 11:14 Consult to Physician [CONS] Stat Comment: Consulting Provider: Javan Sandoval Reason For Exam: Physician to Consult Attending physician on discharge: Adair Butler COURSE Hospital Course Hospital course: Ms. Winchester is a 42 year old F history of CHF, sleep apnea on CPAP at night, presenting with 1 week history of acute nausea, gradually worsening shortness of breath. Patient was being diagnosed with CHF about 5 years ago. About a week ago, she have acute onset shortness of breath unable to take a deep breath because of some right-sided flank pain. She is also complaining of intermittent cough but she denies any wheezing but her family stated that she does have wheezing. She denies any chest pain or palpitations. She denies any fever chills or diaphoresis. She has a history of exertional dyspnea of 20 feet. She has orthopnea sleeping on 2 pillows. She is complaining of bilateral leg swellings. She denies any unintentional weight gain. She was placed on BiPAP in the ED. Labs significant for lack of leukocytosis with WBC 9.3. Lactic acid 0.8. D-dimer 6.57. BNP 2806. CTA of the chest negative for pulmonary embolism. It shows right upper lobe and right lower lobe atelectasis. It shows moderate to large right pleural effusions. It also suggesting the presence of pulmonary arterial hypertension. 05/22: Was on BiPAP overnight, currently at 5L/min oxygen via nasal cannula. c/o improving degree of shortness of breath. Denies cough or respiratory wheezing. Denies fever, chills, or sweating. Denies chest pain or palpitation. Improving degree of general body weakness. d/c Doxazosin. Continue Lasix IV and Lisinopril. Continue to wean down/off BiPAP as tolerated. Pending echocardiogram. Pending physical therapy. 05/23: Reached clinical stability. Discharged to home with home health physical therapy. 1 week PCP follow up appointment made for her. Home oxygen arranged. She will need outpatient sleep study in order to qualify for CPAP at night while sleeping. All questions were answered prior to patient being physically discharged. Discharge diagnosis: CHF exacerbation; obesity hypoventilation; obstructive sleep apnea. Time Spent with Patient Time attestation: Total time spent providing and/or coordinating discharge services: Time spent: Greater than 30 minutes EXAM Constitutional Vitals: Temp Pulse Resp BP Pulse Ox O2 Del Method O2 Flow Rate 37.9 C H 91 H 24 H 150/92 93 3 05/23/22 08:14 05/23/22 10:05 05/23/22 10:05 05/23/22 10:05 05/23/22 10:05 05/23/22 10:05 05/23/22 10:05 General appearance: cooperative, morbidly obese and no acute distress Head Head exam: Present atraumatic and normocephalic Eye Eye exam: Present EOMI and PERRL ENT ENT exam: Present mucous membranes moist, normal exam and normal external ear exam Additional comments: Nasal cannula in place Neck Neck exam: Present normal inspection; Absent lymphadenopathy, tenderness or thyromegaly Respiratory Respiratory exam: Present decreased breath sounds; Absent accessory muscle use, respiratory distress or wheezes Cardiovascular Cardiovascular exam: Present normal rate and rhythm; Absent JVD GI/Abdominal GI/Abdominal exam: Present normal bowel sounds and soft; Absent organomegaly or tenderness Extremities Exam Extremities exam: Present full ROM, normal capillary refill and normal inspection; Absent tenderness Neurological Exam Neurological exam: Present alert, CN II-XII intact and oriented X3; Absent motor sensory deficit Psychiatric Psychiatric exam: Present normal affect and normal mood; Absent anxious or depressed Skin Skin exam: Present dry and intact Discharge Data Data Completed and Pending Labs on day of discharge: Labs from last 24 hours 05/23/22 05/23/22 05:20 05:20 WBC 8.3 RBC 5.68 H Hgb 14.6 Hct 50.7 H MCV 89.3 MCH 25.7 L MCHC 28.8 L RDW 17.7 H Plt Count 219 MPV 9.8 Immature Gran % (Auto) 0.5 Neut % (Auto) 77.0 Lymph % (Auto) 12.7 L [place] % (Auto) 6.5 Eos % (Auto) 2.8 Baso % (Auto) 0.5 Lymph # (Auto) 1.05 L [place] # (Auto) 0.54 Eos # (Auto) 0.23 Baso # (Auto) 0.04 Immature Gran # 0.04 Absolute Neutrophils 6.35 Sodium 139 Potassium 4.9 Chloride 95 L Carbon Dioxide 42 H* Anion Gap 2.0 L BUN 12 Creatinine 0.5 L GFR Calculation 118 Glucose 93 Calcium 9.0 Phosphorus 3.7 Magnesium 2.2 Total Bilirubin 0.3 AST 16 ALT 15 Alkaline Phosphatase 86 Total Protein 6.9 Albumin 3.7 Globulin 3.2 Albumin/Globulin Ratio 1.2 Preliminary micro results at discharge 05/21/22 09:15 Blood Culture - Preliminary Blood 05/21/22 09:07 Blood Culture - Preliminary Blood Discharge Plan Patient/Caregiver Discharge Instructions Activity: increase activity as tolerated Diet: Regular Diet Instructions: Heart Failure (GEN), Using Oxygen at Home (GEN) Prescriptions: New carvedilol [Coreg] 3.125 mg tablet 3.125 mg PO BID Qty: 60 0RF Rx Instructions: must administer with a meal/food Continued potassium chloride 20 mEq tablet,ER particles/crystals 20 meq PO QDAY doxazosin 2 mg tablet 2 mg PO QDAY alprazolam 1 MG tablet 1 mg PO DAILYP PRN (Reason: Anxiety) quetiapine 300 mg Tablet 150 - 300 mg PO QHS hydrocodone-acetaminophen 5-325 mg tablet 1 tab PO BIDP PRN (Reason: Pain) lisinopril 40 mg tablet 40 mg PO QDAY albuterol sulfate [ProAir HFA] 90 mcg/actuation HFA aerosol inhaler 2 puff inhalation Q4-6HP PRN (Reason: cough, shortness of breath, wheezing) Rx Instructions: administer with spacer Changed furosemide 40 mg tablet 40 mg PO BID 30 Days Qty: 60 0RF Follow Up Plan Follow up with: Roxanne Collier NP-C [Physician] - 05/30/22 4:30 pm Patient Disposition: Home Health Service Prognosis: Fair Rehab Potential: Good I certify that the patient requires SNF services: No Overall status at discharge: patient is progressing back to baseline Discharge Orders: Discharge Order (Routine); Ordered 05/23/22 Ordered By: Adair METCALF VTE Deep Vein Thrombosis/Pulmonary Embolism Present on Admission: No
== END 2022-05-23 11:45 | disposition home health service (06) | DRG 291 ==
LOC: ED 08:31 → ICU 13:31
PROVIDERS: ADMIT Internal Medicine; ATTEND Internal Medicine

== ENCOUNTER 2024-12-03 14:45 | Inpatient (IN) ==
[2024-12-03] MEDS: methylPREDNISolone SOD SUCC 125 MG/2 ML VIAL IV ONE (15:10)
[2024-12-03] MEDS: MAGNESIUM SULFATE 2 GM/50 ML BAG IV ONE (15:10)
[2024-12-03] MEDS: IPRATROPIUM/ALBUTEROL 3 ML AMPUL.NEB NEB ONE ×3 (15:29→18:30)
[2024-12-03 15:39] LABS: Basophils # (Auto) 0.02 K/mcL (0.00-0.30); Basophils % (Auto) 0.4 % (0.0-2.0); Eosinophils # (Auto) 0.04 K/mcL (0.00-0.70); Eosinophils % (Auto) 0.7 % (0.0-7.0); Hematocrit 20.4 % (34.1-44.9); Hemoglobin 5.1 g/dL (11.2-15.7); Lymphocytes % (Auto) 9.2 % (15.5-49.0); Mean Cell Volume 75.8 fL (80.0-100.0); Mean Platelet Volume 9.7 fL (8.8-12.5); Monocytes # (Auto) 0.65 K/mcL (0.10-0.90); Monocytes % (Auto) 11.9 % (1.0-12.0); Neutrophils % (Auto) 77.4 % (38.0-78.0); Platelet Count 227 K/mcL (140-440); RBC 2.69 M/mcL (3.59-5.38); Red Cell Distribution Width 18.9 % (11.5-14.5); WBC 5.5 K/mcL (4.5-11.0)
[2024-12-03 15:57] LABS: Blood Urea Nitrogen 3 mg/dL (6-20); Calcium 8.9 mg/dL (8.6-10.4); Carbon Dioxide 30 mmol/L (22-30); Chloride 99 mmol/L (96-108); Glomerular Filtration Rate 116; Glucose 114 mg/dL (70-105); Potassium 3.8 mmol/L (3.3-5.1); Sodium 136 mmol/L (133-145)
[2024-12-03] MEDS: 0.9 % SODIUM CHLORIDE 250 ML IV SCH (17:52)
[2024-12-03] MEDS: BENZONATATE 100 MG CAPSULE PO ONE (18:33)
[2024-12-03] MEDS: ALBUTEROL SULFATE 2.5 MG/3 ML NEBULIZER NEB ONE (18:58)
[2024-12-03] MEDS: ACETAMINOPHEN 1,000 MG/100 ML BAG IV ONE (20:15)
[2024-12-03] MEDS ORDERED: ALBUTEROL SULFATE 2.5 MG/3 ML NEBULIZER NEB PRN (21:13)
[2024-12-03] MEDS ORDERED: ONDANSETRON 4 MG/2 ML VIAL IV PRN (21:13)
[2024-12-03] MEDS: IPRATROPIUM/ALBUTEROL 3 ML AMPUL.NEB NEB SCH (21:16)
[2024-12-03 21:41] LABS: Ferritin 16.3 ng/mL (13.0-150.0)
[2024-12-03] MEDS: SENNOSIDES 1 TABLET PO SCH (23:01)
[2024-12-03] MEDS: HYDROcodone/APAP 5/325MG TABLET PO ONE (23:13)
[2024-12-03] MEDS: 0.9 % SODIUM CHLORIDE 10 ML SYRINGE IV SCH (23:14)
[2024-12-03] MEDS: HYDROcodone/APAP 5/325MG TABLET PO PRN (23:15)
[2024-12-04] MEDS: predniSONE 20 MG TABLET PO SCH (08:20)
[2024-12-04 08:49] LABS: Hemoglobin 6.5 g/dL (11.2-15.7)
[2024-12-04 09:01] LABS: ALT/SGPT 15 U/L (<40); AST/SGOT 22 U/L (<32); Albumin 3.5 gm/dL (3.2-5.2); Albumin/Globulin Ratio 1.2 (1.0-2.3); Alkaline Phosphatase 71 U/L (39-117); Bilirubin,Direct 0.4 mg/dL (<0.3); Blood Urea Nitrogen 7 mg/dL (6-20); Carbon Dioxide 29 mmol/L (22-30); Chloride 100 mmol/L (96-108); Globulin 2.9 gm/dL (2.2-3.7); Glomerular Filtration Rate 116; Glucose 117 mg/dL (70-105); Lactate Dehydrogenase 171 U/L (135-225); Potassium 4.2 mmol/L (3.3-5.1); Sodium 137 mmol/L (133-145); Triglycerides 92 mg/dL (<150); Uric Acid 4.1 mg/dL (2.5-8.0)
[2024-12-04] MEDS ORDERED: IRON SUCROSE COMPLEX 100 MG/5 ML VIAL IV SCH (10:00)
[2024-12-04] MEDS: ACETAMINOPHEN 325 MG TABLET PO PRN (10:19)
[2024-12-04] MEDS: IRON SUCROSE COMPLEX 300 MG in 0.9 % SODIUM CHLORIDE 250 ML IV SCH (10:31)
[2024-12-04] MEDS: HYDROcodone/APAP 5/325MG TABLET PO PRN (11:38)
[2024-12-04] MEDS: 0.9 % SODIUM CHLORIDE 250 ML IV SCH (13:04)
[2024-12-04] MEDS ORDERED: HYDROcodone/APAP (PP) 5/325MG TABLET (#4) PO PRN (15:48)
[2024-12-04] MEDS: CARVEDILOL 6.25 MG TABLET PO SCH (16:35)
[2024-12-04] MEDS: FUROSEMIDE 20 MG/2 ML VIAL IV ONE (16:35)
[2024-12-04] MEDS: BUDESONIDE 0.5 MG/2 ML AMPUL.NEB NEB SCH (18:30)
[2024-12-04] MEDS: QUEtiapine 100 MG TABLET PO SCH (21:54)
[2024-12-05 06:27] LABS: Basophils # (Auto) 0.03 K/mcL (0.00-0.30); Basophils % (Auto) 0.4 % (0.0-2.0); Eosinophils # (Auto) 0.03 K/mcL (0.00-0.70); Eosinophils % (Auto) 0.4 % (0.0-7.0); Hematocrit 27.7 % (34.1-44.9); Hemoglobin 7.4 g/dL (11.2-15.7); Lymphocytes # (Auto) 0.87 K/mcL (1.50-4.80); Lymphocytes % (Auto) 12.9 % (15.5-49.0); Mean Cell Volume 82.4 fL (80.0-100.0); Mean Corpuscular HGB Conc 26.7 g/dL (31.0-36.0); Mean Platelet Volume 10.5 fL (8.8-12.5); Monocytes # (Auto) 0.67 K/mcL (0.10-0.90); Neutrophils % (Auto) 74.8 % (38.0-78.0); Platelet Count 205 K/mcL (140-440); RBC 3.36 M/mcL (3.59-5.38); Red Cell Distribution Width 19.6 % (11.5-14.5); WBC 6.7 K/mcL (4.5-11.0)
[2024-12-05 07:16] LABS: Blood Urea Nitrogen 9 mg/dL (6-20); Calcium 9.3 mg/dL (8.6-10.4); Carbon Dioxide 32 mmol/L (22-30); Chloride 100 mmol/L (96-108); Glomerular Filtration Rate 116; Glucose 87 mg/dL (70-105); Potassium 4.2 mmol/L (3.3-5.1); Sodium 140 mmol/L (133-145)
[2024-12-05] MEDS ORDERED: PHENTERMINE 37.5 MG PO SCH (09:00)
[2024-12-05] MEDS: ALPRAZolam 0.5 MG TABLET PO PRN (09:37)
[2024-12-05] MEDS: DOXAZOSIN 1 MG TABLET PO SCH (09:39)
[2024-12-05] MEDS: SERTRALINE 100 MG TABLET PO SCH (09:39)
[2024-12-05] MEDS: FUROSEMIDE 40 MG TABLET PO SCH (09:39)
[2024-12-05] MEDS: POTASSIUM CHLORIDE 20 MEQ TABLET PO SCH (09:40)
[2024-12-05] MEDS: AMOXICILLIN/POTASSIUM CLAV 875 MG TABLET PO SCH (09:41)
[2024-12-05 12:17] LABS: Hematocrit 28.2 % (34.1-44.9); Hemoglobin 7.6 g/dL (11.2-15.7)
[2024-12-05] MEDS: CLINDAMYCIN 150 MG CAPSULE PO SCH (14:00)
[2024-12-06 12:09] VITALS: O2SAT 94
[2024-12-06 13:24] VITALS: TEMP 98
== END 2024-12-06 14:14 | disposition home health service (06) | DRG 812 ==
LOC: ED 14:45 → MEDSUR 20:57
PROVIDERS: ADMIT Internal Medicine; ATTEND Internal Medicine